=== PATIENT | female | born 2000 | race Hispanic/Latino ===

== ENCOUNTER 2023-10-05 20:51 | Emergency (ER) | payer OTHER ==
[~2023-10-05] VITALS: Ht 160 cm; Wt 99.8 kg
[2023-10-05 21:27] LABS: BASOPHILS # (AUTO) 0.02 K/uL (0.00-0.20); BASOPHILS % (AUTO) 0.3 % (0.0-5.0); EOSINOPHILS # (AUTO) 0.18 K/uL (0.00-0.70); EOSINOPHILS % (AUTO) 2.3 % (0.0-8.0); IMMATURE GRANULOCYTE ABSOLUTE 0.02 K/uL (0-1); LYMPHOCYTES # (AUTO) 2.3 K/uL (1.0-4.8); LYMPHOCYTES % (AUTO) 28.8 % (21.0-51.0); MEAN CORPUSCULAR HEMOGLOBIN 28.5 pg (27.0-33.0); MEAN CORPUSCULAR HGB CONC 33.5 g/dL (32.0-36.0); MEAN CORPUSCULAR VOLUME 84.9 fL (79-99); MONOCYTES # (AUTO) 0.6 K/uL (0.1-1.0); MONOCYTES % (AUTO) 7.9 % (3.0-13.0); NEUTROPHILS # (AUTO) 4.8 K/uL (1.8-7.7); NEUTROPHILS % (AUTO) 60.4 % (40.0-77.0); PLATELET COUNT (AUTO) 188 K/uL (130-400); RED BLOOD CELL COUNT(AUTO) 4.71 MIL/uL (4.00-5.50); RED CELL DISTRIBUTION WIDTH 13.4 % (11.0-15.5)
[2023-10-05 21:38] LABS: CREATININE 0.9 mg/dL (0.5-1.0); POTASSIUM 3.7 mmol/L (3.5-5.1)
[2023-10-05 21:47] LABS: ALBUMIN 3.9 g/dL (3.5-5.0); BILIRUBIN,TOTAL 0.4 mg/dL (0.2-1.0); TOTAL PROTEIN, SERUM 7.7 g/dL (6.0-8.3)
[2023-10-05] MEDS ORDERED: METH4TAB3 PO (22:32)
[2023-10-05] MEDS ORDERED: IBUP-2077 PO (22:32)
[2023-10-05] MEDS ORDERED: DEXAMETHASONE SOD PHOSPHATE 4 MG/ML 1ML VIAL IM SCH (22:35)
[2023-10-05] MEDS ORDERED: IBUPROFEN 800 MG TAB PO SCH (22:36)
[2023-10-05 22:42] VITALS: BP 118/69; PULSE 67; RESP 18; O2SAT 98
[2023-10-05] MEDS: DEXAMETHASONE SOD PHOSPHATE 4 MG/ML 1ML VIAL IV SCH (22:44)
[2023-10-05] MEDS: KETOROLAC 30MG VIAL (30MG/ML) IVP ONE (22:46)
== END 2023-10-05 23:02 | disposition home or self-care (01) ==
LOC: EDH 20:51
DX: M94.0 Chondrocostal junction syndrome [Tietze] (principal); R07.89 Other chest pain; D64.9 Anemia, unspecified; Z90.49 Acquired absence of other specified parts of digestive tract; Z98.890 Other specified postprocedural states
CPT/HCPCS: 99285; 96374; 71045; 96375; 84484; 80053; 85025; 81025; 36415; 93005; J1100; J1885

== ENCOUNTER 2024-07-11 00:15 | Emergency (ER) | payer SELFPAY ==
[~2024-07-11] VITALS: Ht 160 cm; Wt 81.6 kg
[~2024-07-11 00:15] MED LIST: IBUP-2077 PO; METH4TAB3 PO
--- NOTE | 2024-07-11 00:18 | NUR ---
UA CUP PROVIDED
--- NOTE | 2024-07-11 00:55 | ERN ---
ED Note History of Present Illness Stated Complaint: ABD PAIN, N/V Chief Complaint: Abdominal Pain Time Seen by MD: 00:18 Time Seen by Midlevel: 00:18 Dictation: The patient is a 24-year-old female with a history of appendectomy who presents to the emergency department with complaints of epigastric abdominal pain, nausea nonbloody vomiting onset 7:00 p.m.. Patient reports an episode of diarrhea. Denies any fevers. Allergies: Coded Allergies: No Known Allergies (Unverified Allergy, Unknown, 10/05/23) Home Meds Active Scripts Methylprednisolone (Medrol) 4 Mg Tab.ds.pk, 4 MG PO ACLUNCH, #30 TAB Prov:ADELINA CRUZ SHUTTLE FIXER 10/05/23 Ibuprofen (Ibuprofen 800 mg Tab) 800 Mg Tab, 800 MG PO Q8H PRN for fever or pain, #30 TAB 0 Refills Prov:ADELINA CRUZ SHUTTLE FIXER 10/05/23 Past Medical History Past Medical History: No Pertinent History, Anemia Surgical History: Appendectomy History: Not Applicable LMP: Jun 21, 2024 : 1 Para: 1 RN Note Reviewed/Agreed w/PFSH: Yes Review of System Dictation Constitutional: Negative for fever,chills, and weight loss Eyes: Negative for injury, pain,redness, and discharge ENT: Negative for injury,pain or swelling Cardiovascular: Negative for chest pain, palpitations, and edema Respiratory: Negative for shortness of breath, cough, and wheezing, Abdomen/GI: Negative for , nausea, vomiting, diarrhea, and constipation positive for abdominal pain Back: Negative for injury and pain : Negative for injury, bleeding and discharge MS/Extremity: Negative for injury and deformity Skin: Negative for rash, and discoloration Neuro: Negative for headache, weakness, numbness, tingling, and seizure Psych: Negative for suicide ideation, homicidal ideation, and hallucinations Initial Vital Sign VS Vital Signs Date Time Temp Pulse Resp B/P (MAP) Pulse Ox O2 Delivery O2 Flow Rate FiO2 07/11/24 00:16 98.1 60 16 121/71 100 Room Air 07/11/24 01:44 0 21 Physical Exam Dictation Vital Signs reviewed General Appearance: Alert, oriented x 3, no acute distress, well developed, nourished. Head and Face: non-traumatic. Eyes: PERRL, pink conjunctivas, eyelid no trauma, anterior chamber with arcus senilis. Ears: Pinnas intact and no signs of trauma or erythema ear canals clear and no discharge TM no erythema Nose: No discharge, no bleeding. Oropharynx: Mouth normal, tongue pink. pharynx clear,no erythema, tonsils no exudates, no abscesses noted, mucous membrane moist Neck: Supple, non-tender, no thyromegaly, no masses, no JVD, no bruits Breast:Deferred Chest:No tenderness, no crepitus, no paradoxical movement, no retractions Lungs:Clear, well-ventilated, symmetric, no rales, no wheezing, no rhonchi, no stridor, good breath sounds bilaterally Heart: Regular rate, regular rhythm, no murmur, no gallops Vascular: no peripheral edema, Abdomen: Soft, positive bowel sounds, nondistended, no guarding, nontender, no rebound, no masses no hepatomegaly, no splenomegaly, no Jackson's sign, no hernias. Rectal: Deferred Genital: Deferred Neurological: Normal speech, motor function intact, sensory function intact Musculoskeletal: Neck nontender, full range of motion, back nontender, full range of motion, Extremities: nontender, full range of motion Skin: Color pink, dry, no turgor, no rash, no lacerations, no abrasions, no contusions. Lymphatic: Deferred Results (Laboratory/Radiology) Laboratory/Radiology Laboratory Tests Test 07/11/24 01:41 07/11/24 03:15 White Blood Count 9.0 K/uL (4.8-10.8) Red Blood Count 4.85 MIL/uL (4.00-5.50) Hemoglobin 14.2 g/dL (12.0-16.0) Hematocrit 43.4 % (36-48) Mean Corpuscular Volume 89.5 fL (79-99) Mean Corpuscular Hemoglobin 29.3 pg (27.0-33.0) Mean Corpuscular Hemoglobin Concent 32.7 g/dL (32.0-36.0) Red Cell Distribution Width 12.3 % (11.0-15.5) Platelet Count 195 K/uL (130-400) Mean Platelet Volume 11.8 fL (7.5-10.5) H Immature Granulocyte % (Auto) 0.2 % (0-1) Neutrophils (%) (Auto) 84.6 % (40.0-77.0) H Lymphocytes (%) (Auto) 11.5 % (21.0-51.0) L Monocytes (%) (Auto) 3.5 % (3.0-13.0) Eosinophils (%) (Auto) 0.0 % (0.0-8.0) Basophils (%) (Auto) 0.2 % (0.0-5.0) Neutrophils # (Auto) 7.6 K/uL (1.8-7.7) Lymphocytes # (Auto) 1.0 K/uL (1.0-4.8) Monocytes # (Auto) 0.3 K/uL (0.1-1.0) Eosinophils # (Auto) 0.00 K/uL (0.00-0.70) Basophils # (Auto) 0.02 K/uL (0.00-0.20) Absolute Immature Granulocyte (auto 0.02 K/uL (0-1) Nucleated Red Blood Cells 0.0 % (0.0-0.19) Sodium Level 134 mmol/L (136-145) L Potassium Level 3.8 mmol/L (3.5-5.1) Chloride Level 97 mmol/L (101-111) L Carbon Dioxide Level 20 mmol/L (21-32) L Blood Urea Nitrogen 6 mg/dL (7-18) L Creatinine 0.8 mg/dL (0.5-1.0) Glomerular Filtration Rate Calc 105 mL/min (>90) Random Glucose 81 mg/dL (70-105) Total Calcium 9.4 mg/dL (8.5-10.1) Total Bilirubin 0.8 mg/dL (0.2-1.0) Direct Bilirubin 0.2 mg/dL (0.0-0.3) Aspartate Amino Transf (AST/SGOT) 28 U/L (10-37) Alanine Aminotransferase (ALT/SGPT) 30 U/L (12-78) Alkaline Phosphatase 113 U/L (50-136) Total Protein 8.5 g/dL (6.0-8.3) H Albumin 4.4 g/dL (3.5-5.0) Lipase 22 U/L (16-77) Serum Test, Qualitative NEGATIVE (NEGATIVE) Urine Color LIGHT-YELLOW (YELLOW) Urine Appearance CLOUDY (CLEAR) H Urine pH 5.5 (5.0-8.0) Urine Specific [place] 1.026 (1.001-1.031) Urine Protein 70 mg/dL (NEGATIVE) H Urine Glucose (UA) NEGATIVE mg/dL (NEGATIVE) Urine Ketones 150 mg/dL (NEGATIVE) H Urine Occult Blood NEGATIVE (NEGATIVE) Urine Nitrate NEGATIVE (NEGATIVE) Urine Bilirubin NEGATIVE mg/dL (NEGATIVE) Urine Urobilinogen 0.2 mg/dL (0.2-1.0) Urine Leukocyte Esterase NEGATIVE Elisabeth/uL Urine RBC 2-5 /HPF (0-1) H Urine WBC 6-10 /HPF (0-1) H Urine Squamous Epithelial Cells MOD /HPF (0-2) Urine Bacteria FEW /HPF (None Seen) Urine Hyaline Casts 2-5 /LPF (0-1 /LPF) H Urine Opiates Screen POSITIVE (NEGATIVE) H Urine Barbiturates Screen NEGATIVE (NEGATIVE) Urine Phencyclidine Screen NEGATIVE (NEGATIVE) Urine Amphetamines Screen NEGATIVE (NEGATIVE) Urine Benzodiazepines Screen NEGATIVE (NEGATIVE) Urine Cocaine Screen NEGATIVE (NEGATIVE) Urine Marijuana (THC) Screen POSITIVE (NEGATIVE) H Labs Reviewed?: Yes ED Course ED Course Orders Procedure Category Date Status Time Cbc With Differential LAB 07/11/24 Complete 00: Urinalysis Profile LAB 07/11/24 Complete 00: Us Abdominal Ruq\Ltd US 07/11/24 Taken 00:26 0.9%Nacl 1000ml (Ns PHA 07/11/24 Complete 1000ml) 00:30 Morphine 4mg Syg PHA 07/11/24 Complete (Morphine 4mg Syg) 00:30 Ondansetron 4mg Inj PHA 07/11/24 Complete (Zofran 4mg Inj) 00:30 Pantoprazole 40mg Inj PHA 07/11/24 Complete (Protonix 40mg Inj 00:30 Lipase LAB 07/11/24 Complete 00:26 Basic Metabolic Panel LAB 07/11/24 Complete 00:26 Hepatic Function Panel LAB 07/11/24 Complete 00: Drug Screen Urine LAB 07/11/24 Complete 00: Testing, LAB 07/11/24 Complete Serum Hcg 01:57 Culture Urine MAKENZIE 07/11/24 In Process 03:34 Current Medications Medications (Trade) Dose Ordered Sig/Teodoro Route PRN Reason Start Time Stop Time Status Last Admin Dose Admin Morphine Sulfate (morPHINE 4MG SYG) 4 mg ONCE ONCE IVP 07/11/24 00:30 07/11/24 00:33 DC 07/11/24 01:28 Ondansetron HCl (zoFRAN 4MG INJ) 4 mg ONCE ONCE IVP 07/11/24 00:30 07/11/24 00:33 DC 07/11/24 01:28 Pantoprazole Sodium (PROTonix 40MG INJ) 40 mg ONCE ONCE IVP 07/11/24 00:30 07/11/24 00:33 DC 07/11/24 01:28 Sodium Chloride 1,000 ml @ 0 mls/hr ONCE ONCE IV 07/11/24 00:30 07/11/24 00:33 DC 07/11/24 01:28 Vital Signs Date Time Temp Pulse Resp B/P (MAP) Pulse Ox O2 Delivery O2 Flow Rate FiO2 07/11/24 01:44 98.4 92 18 125/65 99 Room Air* 0 21 07/11/24 00:16 98.1 60 16 121/71 100 Room Air Medical Decision Making MDM The patient is a 24-year-old female with a history of appendectomy who presents to the emergency department with complaints of epigastric abdominal pain, nausea nonbloody vomiting onset 7:00 p.m.. Patient reports an episode of diarrhea. Denies any fevers. Differential diagnosis: Gastroenteritis, cholelithiasis, dehydration, gastritis Need for hospitalization: Patient does not meet criteria for hospitalization. There are no social concerns with this patient. CC: Epigastric pain, vomiting, onset about 24 hours ago. Historian: Patient Comorbidities: Appendectomy Limitations by social determinants of health: Uninsured Vital signs: Stable, remained stable in the ER Differential diagnosis: Gastritis, gastroenteritis, biliary pathology, pancreatitis, other. Labs (independently ordered and interpreted by me): CBC is normal. There is a mild left shift. No bands. No leukocytosis. Chemistry shows stable electrolytes, normal GFR, normal liver enzymes, normal lipase, hCG is negative. Urinalysis shows some ketones, few WBCs but no convincing signs of significant infection. Some mild dehydration. He tox screen is positive for marijuana and opiates. Ultrasound right upper quadrant (independently interpreted by me): No signs of cholecystitis, no free fluid pericholecystic fluid or significant stones. Treatment in the ER: 1 L normal saline, IV morphine, IV Protonix, IV Zofran. Re-evaluation: Pain is improved, patient was sleeping. Low suspicion for any surgical pathology daily life threats. Soft nontender and nondistended abdomen. Stable vital signs. Stable labs. No indication for advanced imaging at this time. We will DC with prescription for ondansetron and recommend PCP follow up. DX & DISP Disposition: Discharge Departure Impression: Primary Impression: Gastritis Additional Impression: Dehydration Condition: Stable Scripts Ondansetron (Ondansetron Odt) 4 Mg Tab.rapdis 1 TAB PO Q6HPRN PRN for nausea/vomiting for 4 Days, #16 TAB 0 Refills Prov: SEBASTIAN GALLARDO DO 07/11/24 Additional Instructions: There are no dangerous findings on your workup here today. Your symptoms are most consistent with a gastritis which is inflammation of the stomach. Your vital signs have been stable in the ER. Your blood work (CBC, BMP, liver function tests, lipase, hCG, urinalysis) is unremarkable. You did test positive for marijuana. I recommend that you reduce recreational drug use. The ultrasound does not show any gallstones or problems with your liver or gallbladder. You received IV fluids, IV Protonix, IV morphine, and IV ondansetron here in the ER. I have prescribed ondansetron dissolvable tabs. Use as needed to prevent vomiting. Be sure to drink plenty of liquids. An electrolyte solution such as Gatorade or Pedialyte as good choice. Start with the BRAT (bananas, rice, applesauce, toast) diet. Advance her diet slowly as tolerated after this. If you continue with symptoms in the next 2-4 days, I recommend he follow up with your primary doctor for re-evaluation. Please return to the emergency department if you have any concerns. Referrals: SELF,REFERRAL (PCP) TOBI GILLILAND Jul 11, 2024 00:55 SEBASTIAN GALLARDO DO Jul 11, 2024 03:45
[2024-07-11] MEDS: morPHINE 4 MG SYG IVP ONE (01:28)
[2024-07-11] MEDS: PANTOPrazole 40 MG/VIAL IVP ONE (01:28)
[2024-07-11] MEDS: ondanSETRON 4MG INJ IVP ONE (01:28)
[2024-07-11] MEDS: 0.9%NACL 1000ML 1,000 ML IV ONE (01:28)
[2024-07-11 02:04] LABS: BASOPHILS # (AUTO) 0.02 K/uL (0.00-0.20); BASOPHILS % (AUTO) 0.2 % (0.0-5.0); HEMATOCRIT 43.4 % (36-48); IMMATURE GRANULOCYTE ABSOLUTE 0.02 K/uL (0-1); LYMPHOCYTES % (AUTO) 11.5 % (21.0-51.0); MEAN CORPUSCULAR HEMOGLOBIN 29.3 pg (27.0-33.0); MEAN CORPUSCULAR HGB CONC 32.7 g/dL (32.0-36.0); MEAN CORPUSCULAR VOLUME 89.5 fL (79-99); MONOCYTES # (AUTO) 0.3 K/uL (0.1-1.0); MONOCYTES % (AUTO) 3.5 % (3.0-13.0); NEUTROPHILS # (AUTO) 7.6 K/uL (1.8-7.7); NEUTROPHILS % (AUTO) 84.6 % (40.0-77.0); PLATELET COUNT (AUTO) 195 K/uL (130-400); RED BLOOD CELL COUNT(AUTO) 4.85 MIL/uL (4.00-5.50); RED CELL DISTRIBUTION WIDTH 12.3 % (11.0-15.5)
[2024-07-11 02:15] LABS: CREATININE 0.8 mg/dL (0.5-1.0); POTASSIUM 3.8 mmol/L (3.5-5.1)
[2024-07-11 02:19] LABS: ALBUMIN 4.4 g/dL (3.5-5.0); BILIRUBIN,DIRECT 0.2 mg/dL (0.0-0.3); BILIRUBIN,TOTAL 0.8 mg/dL (0.2-1.0); TOTAL PROTEIN, SERUM 8.5 g/dL (6.0-8.3)
[2024-07-11 03:22] LABS: APPEARANCE,URINE CLOUDY (CLEAR); BILIRUBIN,URINE NEGATIVE (NEGATIVE); COLOR,URINE LIGHT-YELLOW (YELLOW); GLUCOSE, URINE (UA) NEGATIVE (NEGATIVE); KETONES,URINE 150 mg/dL (NEGATIVE); LEUKOCYTE ESTERASE ,URINE NEGATIVE Leu/uL (NEGATIVE); NITRATE,URINE NEGATIVE (NEGATIVE); OCCULT BLOOD,URINE NEGATIVE (NEGATIVE); PH,URINE 5.5 (5.0-8.0); PROTEIN,URINE 70 mg/dL (NEGATIVE); UROBILINOGEN,URINE 0.2 mg/dL (0.2-1.0)
[2024-07-11 03:24] LABS: ADD UA MICROSCOPIC YES
[2024-07-11 03:29] LABS: AMPHET/METH SCREEN,URINE NEGATIVE (NEGATIVE); BARBITURATE SCREEN, URINE NEGATIVE (NEGATIVE); BENZODIAZEPINES SCREEN,URINE NEGATIVE (NEGATIVE); CANNABINOID SCREEN,URINE POSITIVE (NEGATIVE); COCAINE SCREEN,URINE NEGATIVE (NEGATIVE); OPIATE SCREEN,URINE POSITIVE (NEGATIVE); PHENCYCLIDINE SCREEN,URINE NEGATIVE (NEGATIVE)
[2024-07-11 03:33] LABS: BACTERIA,URINE FEW /HPF (None Seen); MUCUS,URINE RARE LPF (None Seen); SQUAMOUS EPITHELIAL CELL,UR MOD /HPF (0-2)
[2024-07-11] MEDS ORDERED: ONDA-243 PO (03:44)
[2024-07-11 03:48] VITALS: BP 128/60; PULSE 89; RESP 18; TEMP 98.8; O2SAT 100
--- NOTE | 2024-07-11 08:33 | HMCIMG ---
US ABDOMINAL RUQ\E\LTD HISTORY: Adominal Pain COMPARISON: None FINDINGS: There is normal sonographic appearance of the liver. There are no focal liver masses. The liver is not enlarged.There is a normal-appearing gallbladder. Common duct is normal. Right kidney is normal with no evidence of mass, hydronephrosis or stone.The pancreas appears normal as well. IMPRESSION: 1. Normal right upper quadrant sonogram.
== END 2024-07-11 04:00 | disposition home or self-care (01) ==
LOC: EDH 00:15
DX: K29.70 Gastritis, unspecified, without bleeding (principal); E86.0 Dehydration; Z79.899 Other long term (current) drug therapy; Z90.49 Acquired absence of other specified parts of digestive tract
CPT/HCPCS: 99285; 96374; 76705; 96375; 80076; 80048; 80305; 84703; 83690; 85025; 87086; 36415; 81001; J7030; J2405; J2270; J2470